=== PATIENT | male | born 1960 | race Hispanic/Latino ===

== ENCOUNTER → 2018-08-15 | Outpatient (CLI) | payer BC ==
--- NOTE | 2018-08-21 05:01 | Polysomnography ---
DATE OF STUDY: 08/15/2018 REFERRING PHYSICIAN: Sharan Wilson MD STUDY: Interpretation of a home sleep study. INTERPRETING PHYSICIAN: Sharan Wilson MD. ASSESSMENT: Severe obstructive sleep apnea with apnea-hypopnea index (AHI) of 65.4. No limb movements were observed. RECOMMENDATIONS: 1. Initiate titration for continuous positive airway pressure therapy (CPAP). 2. ENT evaluation to consider surgical options to correct sleep-disordered breathing. 3. Avoid consumption of alcohol or sedatives before bedtime. 4. Avoid caffeine and exercise within 3 to 4 hours prior to bedtime. 5. Weight reduction to ideal body weight. 6. I advised the patient that excessive daytime sleepiness could pose a danger to the patient and others while driving or operating heavy machinery, and to use caution until symptoms are treated and improved. 7. The patient to follow up with physician to discuss results of study. Sharan Wilson MD JKY/MODL /[id number]
== END ==
LOC: SLEEP 19:18
PROVIDERS: ATTEND Otolaryngology
DX: G47.33 Obstructive sleep apnea (adult) (pediatric) (principal); G47.61 Periodic limb movement disorder
CPT/HCPCS: 95806